=== PATIENT | female | born 1955 | race Caucasian/White ===

== ENCOUNTER 2017-12-11 15:18 | Emergency (ER) | payer BC ==
--- NOTE | 2017-12-11 15:45 | Emergency Department Record ---
History of Present Illness - General Chief Complaint: Back Pain/Injury Stated Complaint: LOWER BACK PAIN Time Seen by Provider: 12/11/17 15:35 Source: Patient Mode of Arrival: Ambulatory Limitations: No limitations - History of Present Illness Initial Comments: The patient is here due to intermittent flank pain for about 2 weeks. Initially it started in the L flank and then travelled to the R flank. Now again it is mainly in the L flank. The patient also has mild dysuria at times but denies any fever, chills, nausea, vomiting, or diarrhea. The patient had a similar episode of pain in Apr of last year and was diagnosed with Diverticulitis. For that episode she got oral Abx's and pain meds and did well. MD Complaint: Other Onset/Timin -: Week(s) Similar Symptoms Previously: Yes Radiation: Flank Severity scale (1-10): 2 Quality: Aching Consistency: Constant Improves With: None Worsens With: None Context: Unknown Associated Symptoms: Loss of appetite - Related Data Allergies Allergy/AdvReac Type Severity Reaction Status Date / Time Zhexlqo-[id number]-Hou Reductase Allergy Intermediate JOINT ACHES Verified 05/28/17 08: 55 Inhibitor Sulfa (Sulfonamide Allergy Intermediate PT UNSURE Verified 05/28/17 08:55 Antibiotics) OF REACTION ibandronate sodium Allergy BODY ACHES Verified 05/28/17 08:55 [From Boniva] codeine AdvReac Intermediate HEADACHE Verified 05/28/17 08:55 Travel Screening - Travel/Exposure Within Last 30 Days Have you traveled within the last 30 days?: No Review of Systems Constitutional: Denies: Chills, Fever Eyes: Denies: Eye discharge ENT: Denies: Congestion Respiratory: Denies: Cough, Dyspnea Past Medical History - SOCIAL HISTORY Smoking Status: Never smoker - RESPIRATORY Hx Respiratory Disorders: No - CARDIOVASCULAR Hx Cardio Disorders: Yes Hx Heart Attack: Yes (2006) - NEURO Hx Neuro Disorders: No - GI Hx GI Disorders: Yes Hx Diverticulitis: Yes - Hx Genitourinary Disorders: Yes Hx Kidney Stones: Yes - ENDOCRINE Hx Endocrine Disorders: No - MUSCULOSKELETAL Hx Musculoskeletal Disorders: No - PSYCH Hx Psych Problems: No - HEMATOLOGY/ONCOLOGY Hx Hematology/Oncology Disorders: No Family Medical History Any Significant Family History?: Yes Hx Dementia: Mother Hx Kidney Disease: Father Physical Exam - General General Appearance: Alert, Oriented x3, Cooperative, No acute distress - Head Head exam: Atraumatic, Normocephalic, Normal inspection - Eye Eye exam: Normal appearance, PERRL - Neck Neck exam: Normal inspection, Full ROM. negative: Tenderness - Respiratory Respiratory exam: Normal lung sounds bilaterally. negative: Respiratory distress - Cardiovascular Cardiovascular Exam: Regular rate, Normal rhythm, Normal heart sounds - GI/Abdominal GI/Abdominal exam: Soft, Normal bowel sounds. negative: Tenderness - Extremities Extremities exam: Normal inspection, Full ROM, Normal capillary refill. negative: Tenderness - Neurological Neurological exam: Alert, Normal gait. negative: Abnormal gait, Motor sensory deficit - Skin Skin exam: negative: Rash Course Vital Signs 12/11/17 15:22 Temperature 98.5 F Pulse Rate 98 H Respiratory 18 Rate Blood Pressure 147/80 Pulse Ox 95 - Reevaluation(s) Reevaluation #1: The patient is doing very well at this time. She is resting comfortably with no discomfort. I did discuss the lab work and CT results and the fact that I doubted any Diverticulitis as to the cause of the discomfort. We will treat the patient for constipation and refer her to Dr. Moreno for a Colonoscopy. 12/11/17 17:25 Medical Decision Making - Data Complexity MDM Data: Labs Ordered and/or Reviewed, X-Ray Ordered and/or Reviewed - Lab Data Result diagrams: 12/11/17 15:45 12/11/17 15:45 - Radiology Data Radiology results: Report reviewed (CT: Significant Constipation, Poss. proximal ascending colon mass. Recommend Scope.) Disposition Disposition: Discharge Clinical Impression: Acute constipation Disposition: Home, Self-Care Condition: (2) Stable Instructions: Constipation (ED) Additional Instructions: Please continue your home medicines. Please drink 1/2 of the bottle of MgCitrate tonight and 1/2 in the AM. Please see Dr. Moreno in the [facility] next week. Return to the ER for any worsening symptoms. Referrals: [facility] Specialty Clinics [Provider Group] Forms: Patient Portal Access Time of Disposition: 17:24 Quality - Quality Measures Quality Measures: N/A - Blood Pressure Screening View Details: Yes Does Patient Have Any of the Following: No Blood Pressure Classification: Hypertensive Reading Systolic Measurement: 133 Diastolic Measurement: 92 Screening for High Blood Pressure: < First Hypertensive BP, F/U Documented > [ [id number]] First Hypertensive Follow-up Interventions: Referral to alternative/primary care provider.
[2017-12-11 15:52] LABS: BASO % 0.4 % (0-6); EOS % 0.4 % (0-6); GRAN % 74.1 % (47-80); HEMATOCRIT 42.9 % (35.0-47.0); HEMOGLOBIN 14.3 gm/dl (11.6-16.0); MEAN CORPUSCULAR HEMOGLOBIN 28.3 pg (27-33); MEAN CORPUSCULAR HGB CONC 33.3 g/dl (32-36); MONO % 4.1 % (0-9); PLATELET COUNT 300 K/uL (130-400); RED BLOOD COUNT 5.05 M/uL (3.80-5.40); RED CELL DISTRIBUTION WIDTH 13.5 % (11.5-14.5); WHITE BLOOD COUNT W/O DIFF 7.6 K/uL (4.2-12.2)
[2017-12-11 15:53] LABS: URINE APPEARANCE CLEAR; URINE BILIRUBIN NEGATIVE (NEGATIVE); URINE BLOOD TRACE-I (NEGATIVE); URINE COLOR YELLOW; URINE GLUCOSE (UA) NEGATIVE (NEGATIVE); URINE KETONE NEGATIVE (NEGATIVE); URINE LEUKOCYTE ESTERASE NEGATIVE (NEGATIVE); URINE NITRITE NEGATIVE (NEGATIVE); URINE PROTEIN NEGATIVE (NEGATIVE); URINE UROBILINOGEN 0.2 E.U./dL (0.20 - 1.00)
[2017-12-11 16:09] LABS: URINE EPITHELIAL CELLS 0 - 2 (FEW); URINE RBC 0 - 2 (NONE SEEN); URINE WBC 0 - 2 (0-2/hpf)
[2017-12-11 16:24] LABS: BLOOD UREA NITROGEN 15 mg/dL (8-23); CREATININE 0.5 mg/dL (0.5-0.9); EST GLOMERULAR FILTRATION RATE > 60 mL/min
[2017-12-11 16:25] LABS: TOTAL PROTEIN 6.9 g/dL (6.6-8.7)
[2017-12-11 16:27] LABS: GLUCOSE,RANDOM 89 mg/dL (74-109)
[2017-12-11 16:29] LABS: ALT/SGPT 12 U/L (<33)
[2017-12-11 16:30] LABS: ALBUMIN 4.4 g/dL (4.0-5.0); ALKALINE PHOSPHATASE 59 U/L (35-104); AST/SGOT 14 U/L (10.0-35.0); LIPASE 34 U/L (13-60)
[2017-12-11 16:41] LABS: BILIRUBIN,DIRECT < 0.2 mg/dL (0-0.3)
[2017-12-11] MEDS ORDERED: MAGNESIUM CITRATE 296 ML BTL PO ONE (17:22)
--- NOTE | 2017-12-13 12:06 | CT SCAN REPORT ---
DATE: 12/11/2017 at 4:09 p.m. EXAM: CT SCAN OF THE ABDOMEN AND PELVIS WITHOUT CONTRAST. HISTORY: Back and flank pain for two weeks. TECHNIQUE: Axial CT scan of the abdomen and pelvis performed without oral or intravenous contrast. COMPARISON: None. FINDINGS: No calcified gallstones are seen within the gallbladder. There may be some extremely tiny, nonobstructing intrarenal calculi bilaterally. No appreciable hydronephrosis or hydroureter is seen on either side. As such, it is quite difficult to follow the entire course of both ureters in their nondilated state throughout the retroperitoneum and pelvis. However, no definite ureteral calculus is seen on either side, and no bladder calculus is evident. Uterus not identified; presumably surgically absent. Evaluation of the bowel and viscera is very limited without oral or intravenous contrast. Given this limitation, no definite hepatic, splenic, adrenal, pancreatic, or renal mass identified. A prominent amount of stool throughout the colon, and clinical correlation as to constipation suggested. There is a prominent soft tissue density in the region of the lower ascending colon measuring about 5.6 x 4.0 cm in diameter. This was not present previously. This could just be an unusually solid amount of stool without any interposed air , but a similar appearance is not seen elsewhere throughout the fairly extensive stool content of the colon. A developing mass in the region of the lower ascending colon cannot be excluded. Follow-up colonoscopy is suggested. A small, periumbilical anterior wall hernia containing adipose tissue but no bowel. No free intraperitoneal air or free intraperitoneal fluid identified. IMPRESSION: 1. THERE MAY BE SOME EXTREMELY TINY INTRARENAL, NONOBSTRUCTING CALCULI. NO HYDRONEPHROSIS OR URETERAL CALCULUS SEEN. 2. A PROMINENT AMOUNT OF STOOL THROUGHOUT MUCH OF THE COLON. PROMINENT SOFT TISSUE DENSITY IN THE REGION OF THE LOWER ASCENDING COLON AND A DEVELOPING MASS CANNOT BE EXCLUDED. FOLLOW-UP COLONOSCOPY SUGGESTED. 3. POSTOPERATIVE HYSTERECTOMY. JOB NUMBER: [id number] [facility]
== END 2017-12-11 17:32 | disposition home or self-care (01) ==
LOC: ER 15:18
DX: K59.00 Constipation, unspecified (principal); R10.32 Left lower quadrant pain; M54.5 Low back pain; R30.0 Dysuria; I25.2 Old myocardial infarction
CPT/HCPCS: 74176; 80048; 80076; 81001; 83690; 85025; 99283; 99284